=== PATIENT | male | born 1970 | race Caucasian/White ===

== ENCOUNTER → 2017-04-25 | Outpatient (CLI) | payer OTHER ==
--- NOTE | 2017-04-25 08:45 | US ---
EXAMINATION TYPE: US abdomen limited DATE OF EXAM: 04/25/2017 COMPARISON: None CLINICAL HISTORY: 46-year-old male R10.13 Epigastric Pain. Epigastric pain, NPO Technique: Multiple sonographic images of the right upper quadrant. FINDINGS: Liver Length: 14.5 cm Gallbladder Wall: 0.2 cm CBD: 0.3 cm CHD: 0.2 cm Right Kidney: 11.1 x 4.6 x 4.2 cm Pancreas: Tail obscured by overlying bowel gas Liver: Normal homogeneous echotexture without focal lesion. Gallbladder: No abnormal gallbladder distention, wall thickening, pericholecystic fluid, or shadowin g calculi. Evidence for sonographic Carnes's sign: neg CBD: wnl CHD: wnl Right Kidney: No hydronephrosis. IMPRESSION: Limited visualization of the pancreatic tail. Otherwise, unremarkable sonographic examination of the right upper quadrant.
== END | disposition home or self-care (01) ==
LOC: RADUSWWP 07:41
PROVIDERS: ATTEND Family Medicine
DX: R10.13 Epigastric pain (principal)
CPT/HCPCS: 76705

== ENCOUNTER → 2017-04-25 | Outpatient (CLI) | payer OTHER ==
[2017-04-25 08:34] LABS: Basophils % (A) 0 %; Eosinophils # (A) 0.1 k/uL (0-0.7); Eosinophils % (A) 2 %; HCT 50.9 % (39.0-53.0); HGB 16.1 gm/dL (13.0-17.5); Lymphocytes # (A) 1.8 k/uL (1.0-4.8); Lymphocytes % (A) 41 %; MCH 28.8 pg (25.0-35.0); MCHC 31.7 g/dL (31.0-37.0); Monocytes # (A) 0.3 k/uL (0-1.0); Monocytes % (A) 7 %; Neutrophils # (A) 2.1 k/uL (1.3-7.7); Neutrophils % (A) 46 %; Platelet Count 244 k/uL (150-450); RBC 5.59 m/uL (4.30-5.90); RDW 12.7 % (11.5-15.5); WBC 4.5 k/uL (3.8-10.6)
[2017-04-25 08:45] LABS: ALT 41 U/L (21-72); AST 24 U/L (17-59); Albumin 4.5 g/dL (3.5-5.0); Alkaline Phosphatase 43 U/L (38-126); Anion Gap 13 mmol/L; Blood Urea Nitrogen 25 mg/dL (9-20); Calcium 9.9 mg/dL (8.4-10.2); Carbon Dioxide 28 mmol/L (22-30); Chloride 104 mmol/L (98-107); Cholesterol 185 mg/dL (<200); Glucose 97 mg/dL (74-99); HDL Cholesterol 53 mg/dL (40-60); LDL Cholesterol,Calculated 109 mg/dL (0-99); Potassium 4.6 mmol/L (3.5-5.1); Sodium 145 mmol/L (137-145); Total Bilirubin 0.7 mg/dL (0.2-1.3); Total Protein 7.2 g/dL (6.3-8.2); Triglycerides 117 mg/dL (<150)
[2017-04-25 08:59] LABS: T4, Free (Free Thyroxine) 0.93 ng/dL (0.78-2.19)
== END | disposition home or self-care (01) ==
LOC: LABWHC1 07:59
PROVIDERS: ATTEND Internal Medicine
DX: Z00.00 Encounter for general adult medical examination without abnormal findings (principal); E78.5 Hyperlipidemia, unspecified
CPT/HCPCS: 36415; 80053; 80061; 84439; 84443; 85025

== ENCOUNTER → 2017-08-29 | Outpatient (CLI) | payer OTHER ==
--- NOTE | 2017-08-29 15:10 | ECHOS ---
STRESS ECHOCARDIOGRAM INDICATIONS: Chest pain. MEDICATIONS: Antihistamine tablet. BASELINE HEART RATE: 97 BASELINE BLOOD PRESSURE: 129/63 MAXIMUM HEART RATE: 175 MAXIMUM BLOOD PRESSURE: 148/103 85% MPHR: 147 100% MPHR: 173 METS: 12.9 MAXIMUM STAGE REACHED: IV TOTAL EXERCISE TIME: 12:32 CLINICAL INFORMATION: Baseline rhythm is sinus mechanism, rate of 97, normal axis and intervals, normal electrocardiogram. Baseline blood pressure 129/63 mmHg. Patient exercised on Deshawn protocol for 12 minute 32 seconds, reaching a peak rate of 175 beats per minute which is equal to 101% maximum predicted heart rate. Peak blood pressure 148/103 mmHg. Test was terminated due to fatigue. There are no chest pains. Electrocardiographic monitoring revealed no evidence of diagnostic ischemic ST deviation. FINDINGS: Baseline echocardiogram revealed normal left ventricular function at peak exercise. There was normal wall motion augmentation with no hypokinesis or dyskinesis. CONCLUSION: 1. Good exercise tolerance with normal electrocardiographic response to exercise. 2. Normal stress echocardiogram with no evidence of stress induced ischemia. MMODL / IJN: [id number] /
== END | disposition home or self-care (01) ==
LOC: RADNMMAIN 09:05
PROVIDERS: ATTEND Family Medicine
DX: R07.89 Other chest pain (principal)
CPT/HCPCS: 93351

== ENCOUNTER 2017-10-29 09:16 | Emergency (ER) | payer OTHER ==
[2017-10-29 09:24] VITALS: BP 138/99; PULSE 102; RESP 20; TEMP 98.1
--- NOTE | 2017-10-29 10:24 | ED ---
General Adult HPI - General Chief complaint: Extremity Injury, Upper Stated complaint: Arm injury-[facility] Time Seen by Provider: 10/29/17 09:44 Source: patient, RN notes reviewed Mode of arrival: ambulatory Limitations: no limitations - History of Present Illness Initial comments: Patient is a 47-year-old male presenting to the emergency room today with a chief complaint of an injury to the right arm that occurred earlier this morning when he was at work. He states he was pulling on a fence post when he felt a pop in the right biceps area. Patient states she's had tenderness distal aspect of the right bicep and into the elbow area anteriorly. He states worse with supination and flexion at the elbow. Patient denies any other complaints or symptoms. - Related Data Home Medications Medication Instructions Recorded Confirmed Loratadine [Claritin] 10 mg PO DAILY 10/29/17 10/29/17 Previous Rx's Medication Instructions Recorded Ibuprofen [Motrin] 600 mg PO Q6HR PRN #40 day 10/29/17 Allergies Allergy/AdvReac Type Severity Reaction Status Date / Time No Known Allergies Allergy Verified 10/29/17 10:01 Review of Systems ROS Statement: Those systems with pertinent positive or pertinent negative responses have been documented in the HPI. ROS Other: All systems not noted in ROS Statement are negative. Past Medical History Past Medical History: No Reported History History of Any Multi-Drug Resistant Organisms: None Reported Past Surgical History: Appendectomy, Hernia Repair Past Psychological History: No Psychological Hx Reported Smoking Status: Never smoker Past Alcohol Use History: Occasional Past Drug Use History: None Reported General Exam - General Exam Comments Initial Comments: General: The patient is awake and alert, in no distress, and does not appear acutely ill. Neck: The neck is supple, there is no tenderness or JVD. Musculoskeletal: Patient does have abnormal appearance of the biceps with flexion compared bilaterally. Decreased strength. Tender over the distal aspect of the right biceps and into the right anterior elbow. Radial pulses 2+ . Strength 4/5. Sensation intact. Neurological: A&O x 3. CN II-XII intact, There are no obvious motor or sensory deficits. Coordination appears grossly intact. Speech is normal. Skin: Skin is warm and dry and no rashes or lesions are noted. Psychiatric: Normal mood and affect. Limitations: no limitations Course Vital Signs 10/29/17 09:22 Temperature 98.1 F Pulse Rate 102 H Respiratory 20 Rate Blood Pressure 138/99 O2 Sat by Pulse 98 Oximetry Medical Decision Making - Medical Decision Making The patient is alert and shows evidence for a biceps tendon rupture. Case discussed with orthopedic procurement professional logistics Dr. Carnes recommends arm sling and followed up in the office. Patient states comfortable without movement. Advised following up with orthopedics or returning for any other concerns. Disposition Clinical Impression: Biceps tendon rupture Disposition: HOME SELF-CARE Condition: Good Instructions: Tendon Rupture (ED) Additional Instructions: Please follow-up orthopedics over the next 2 days. Please use arm sling when up and moving around as discussed. Please return to emergency room for any other concerns. Prescriptions: Ibuprofen [Motrin] 600 mg PO Q6HR PRN #40 day PRN Reason: Pain Is patient prescribed a controlled substance at d/c from ED?: No Referrals: Bebo Garcia Jr, DO [Primary Care Provider] - 1-2 days Daryn Carnes MD [STAFF PHYSICIAN] - 1-2 days Time of Disposition: 10:29
== END 2017-10-29 10:46 | disposition home or self-care (01) ==
LOC: EC 09:16
DX: S46.211A Strain of muscle, fascia and tendon of other parts of biceps, right arm, initial encounter (principal); Z79.899 Other long term (current) drug therapy; X50.9XXA Other and unspecified overexertion or strenuous movements or postures, initial encounter; Y93.89 Activity, other specified; Y92.69 Other specified industrial and construction area as the place of occurrence of the external cause; Y99.0 Civilian activity done for income or pay
CPT/HCPCS: 99283

== ENCOUNTER 2018-09-30 14:20 | Emergency (ER) | payer OTHER ==
[2018-09-30 14:28] VITALS: BP 143/94; TEMP 97.8
--- NOTE | 2018-09-30 17:28 | ED ---
General Adult HPI - General Chief complaint: Neck Pain/Injury Stated complaint: Facial Numbness, Neck into shoulder pain Time Seen by Provider: 09/30/18 16:15 Source: patient Mode of arrival: ambulatory Limitations: no limitations - History of Present Illness Initial comments: Patient is a 48-year-old male presents emergency Department with neck pain. Patient reports the symptoms started initially 2 weeks ago with ear discomfort due to ALLERGIES. Patient reports he has since developed pain originating in the left occipital region that is exacerbated with head rotation and alleviated at rest. Patient reports occasionally he feels intermittent numbness and tingling radiating to the left shoulder along the trapezius. Patient also reports occasional tingling along the left side of his face. Patient denies any 1 sided facial or upper extremity weakness. Patient denies blurry vision, headache, nausea, vomiting, chest pain or shortness of breath. - Related Data Home Medications Medication Instructions Recorded Confirmed Loratadine [Claritin] 10 mg PO DAILY 10/29/17 10/29/17 Previous Rx's Medication Instructions Recorded Ibuprofen [Motrin] 600 mg PO Q6HR PRN #40 day 10/29/17 Allergies Allergy/AdvReac Type Severity Reaction Status Date / Time No Known Allergies Allergy Verified 09/30/18 14:28 Review of Systems ROS Statement: Those systems with pertinent positive or pertinent negative responses have been documented in the HPI. ROS Other: All systems not noted in ROS Statement are negative. Past Medical History Past Medical History: No Reported History History of Any Multi-Drug Resistant Organisms: None Reported Past Surgical History: Appendectomy, Hernia Repair Past Psychological History: No Psychological Hx Reported Smoking Status: Never smoker Past Alcohol Use History: Occasional Past Drug Use History: None Reported General Exam Limitations: no limitations General appearance: alert, in no apparent distress Head exam: Present: atraumatic, normocephalic, normal inspection. Absent: other (One-sided facial droopiness or muscle weakness.) Eye exam: Present: normal appearance, PERRL, EOMI Pupils: Present: normal accommodation ENT exam: Present: normal exam Neck exam: Present: normal inspection, tenderness (Tenderness originating in the left suboccipital region with palpation.), full ROM (Full range of motion but pain with head rotation.). Absent: meningismus, lymphadenopathy, thyromegaly Respiratory exam: Present: normal lung sounds bilaterally Cardiovascular Exam: Present: regular rate, normal rhythm, normal heart sounds Extremities exam: Present: normal inspection, full ROM Back exam: Present: normal inspection, full ROM Neurological exam: Present: alert, oriented X3. Absent: motor sensory deficit Psychiatric exam: Present: normal affect, normal mood Skin exam: Present: warm, intact, normal color Course Vital Signs 09/30/18 09/30/18 14:25 17:37 Temperature 97.8 F 97.8 F Pulse Rate 79 77 Respiratory 16 18 Rate Blood Pressure 143/94 143/94 O2 Sat by Pulse 100 98 Oximetry Medical Decision Making - Medical Decision Making Patient is a 48-year-old male presents emergency Department with neck pain. Based on history and physical examination I suspect the patient to have a radiculopathy causing the numbness and tingling symptoms. Patient advised to follow-up with a spine surgeon. Strict return parameters were thoroughly discussed with patient who is understanding and agreeable. also examined the patient and is in agreement with the treatment plan. Disposition Clinical Impression: Radiculopathy Disposition: HOME SELF-CARE Condition: Stable Instructions (If sedation given, give patient instructions): Cervical Strain (ED), Cervical Sprain (ED) Additional Instructions: Please follow-up with Dr. Vieira. Please return to emergency department if symptoms worsen. Is patient prescribed a controlled substance at d/c from ED?: No Referrals: Gabbie Fisher MD [Primary Care Provider] - 1-2 days Lotus Vieira DO [Doctor of Osteopathic Medicine] - 1-2 days Time of Disposition: 17:27
[2018-09-30 17:38] VITALS: PULSE 77; RESP 18
== END 2018-09-30 17:37 | disposition home or self-care (01) ==
LOC: EC 14:20
DX: M54.12 Radiculopathy, cervical region (principal); Z79.899 Other long term (current) drug therapy
CPT/HCPCS: 99283

== ENCOUNTER → 2019-02-12 | Outpatient (CLI) | payer OTHER | END | disposition home or self-care (01) | LOC: LABWHC1 09:53 | PROVIDERS: ATTEND Family Medicine | DX: J01.90 Acute sinusitis, unspecified (principal) | CPT/HCPCS: 36415; 85652; 86140 ==

== ENCOUNTER → 2019-03-08 | Outpatient (CLI) | payer OTHER ==
--- NOTE | 2019-03-09 22:37 | CT ---
EXAMINATION TYPE: CT brain wo/w con DATE OF EXAM: 03/08/2019 COMPARISON: None. HISTORY: [place], neck pain CT DLP: 1891 mGycm. Automated Exposure Control for Dose Reduction was Utilized. TECHNIQUE: CT scan of the head is performed without and with IV Contrast, patient injected with 100 mL of Isovue 300. FINDINGS: Noncontrast images show no acute intracranial hemorrhage or midline shift. The ventricles and sulci show mild generalized prominence of the bilateral frontal lobes. Vaughn-white matter differe ntiation is maintained. Postcontrast images show no suspicious enhancing intraparenchymal mass. There is dominant right vertebral artery incidentally noted. The globes are intact and the visualized sinu ses are clear. IMPRESSION: Mild bilateral frontal lobe atrophy. No acute findings are evident.
== END | disposition home or self-care (01) ==
LOC: RADCTMAIN 07:46
PROVIDERS: ATTEND Internal Medicine
DX: G31.9 Degenerative disease of nervous system, unspecified (principal)
CPT/HCPCS: 70470; Q9967

== ENCOUNTER → 2020-02-27 | Outpatient (CLI) | payer OTHER ==
--- NOTE | 2020-02-27 11:26 | CT ---
EXAMINATION TYPE: CT abdomen pelvis wo con DATE OF EXAM: 02/27/2020 COMPARISON: None INDICATION: Lt flank pain DLP: 675 mGycm, Automated exposure control for dose reduction was used. CONTRAST: 0 mL of Isovue 300. Study performed without Oral Contrast TECHNIQUE: Axial images were obtained from above the diaphragm to the pubic rami in the axial plane a t 5 mm thick sections. Reconstructed images are reviewed on the computer in the coronal plane. FINDINGS: Limited CT sections are obtained the lung bases. The lung bases are clear. CT ABDOMEN: Liver: Normal Spleen: Normal. Splenule is at the splenic hilum. Pancreas: Normal Adrenal glands: The adrenal glands are normal. Gallbladder: Normal Kidneys: No masses are evident. No hydronephrosis is present. No cysts are present. There are mult iple nonobstructing renal stones present bilaterally, the majority of which measuring approximately 0 .2 cm each. Largest calcification at the inferior pole right kidney measuring 0.4 cm. Aorta: Minimal Vascular calcification is within the aorta. Inferior vena cava: Normal. CT PELVIS: Loops of bowel within the abdomen and pelvis are normal. There are loops of bowel which are incom pletely distended or lack oral contrast limiting their evaluation. Appendix: Normal as visualized. Urinary bladder: Normal. Genitourinary structures: Prostate is prominent. Osseous structures: No suspicious lytic or sclerotic lesions. IMPRESSIONS: 1. Multiple bilateral nonobstructing renal stones. The largest measures 0.4 cm at the inferior pole right kidney.
== END | disposition home or self-care (01) ==
LOC: RADCTMAIN 10:30
PROVIDERS: ATTEND Family Medicine
DX: N20.0 Calculus of kidney (principal)
CPT/HCPCS: 74176

== ENCOUNTER → 2021-03-23 | Outpatient (CLI) | payer OTHER ==
[2021-03-23 10:38] LABS: Basophils # (A) 0.02 X 10*3/uL (0.00-0.10); Basophils % (A) 0.5 %; Eosinophils # (A) 0.06 X 10*3/uL (0.04-0.35); Eosinophils % (A) 1.5 %; HCT 50.7 % (39.6-50.0); HGB 16.3 g/dL (13.0-17.0); Lymphocytes % (A) 41.4 %; MCHC 32.1 g/dL (32.0-37.0); MCV 90.1 fL (80.0-97.0); Mean Platelet Volume 9.9 fL (9.5-12.2); Monocytes % (A) 7.3 %; Neutrophils # (A) 2.02 X 10*3/uL (1.80-7.70); Neutrophils % (A) 49.1 %; Platelet Count 253 X 10*3/uL (140-440); RBC 5.63 X 10*6/uL (4.40-5.60); RDW 12.8 % (11.5-14.5); WBC 4.11 X 10*3/uL (4.50-10.00)
[2021-03-23 16:12] LABS: ALT 27 U/L (10-49); AST 17 U/L (14-35); African American GFR (CKD) 100.1 (60.0-200.0); Albumin 4.7 g/dL (3.8-4.9); Albumin/Globulin Ratio 2.27 (1.60-3.17); Alkaline Phosphatase 46 U/L (41-126); BUN/Creat Ratio 23.76 Ratio (12.00-20.00); Calcium 9.7 mg/dL (8.7-10.3); Carbon Dioxide 24.2 mmol/L (20.0-27.5); Chloride 102 mmol/L (96-109); Chol/HDL Ratio 3.81 Ratio; Globulin 2.1 g/dL (1.6-3.3); Glucose 97 mg/dL (70-110); LDL Cholesterol,Calculated 115.1 mg/dL (0.0-131.0); Non-African American GFR(CKD) 86.3 (60.0-200.0); Potassium 4.4 mmol/L (3.5-5.5); Sodium 140 mmol/L (135-145); Total Protein 6.8 g/dL (6.2-8.2)
== END | disposition home or self-care (01) ==
LOC: LABWHC1 07:46
PROVIDERS: ATTEND Internal Medicine
DX: Z00.00 Encounter for general adult medical examination without abnormal findings (principal); E78.00 Pure hypercholesterolemia, unspecified; J30.2 Other seasonal allergic rhinitis; Z12.5 Encounter for screening for malignant neoplasm of prostate
CPT/HCPCS: 84439; 80061; 80053; 84443; 85025; 36415; G0103

== ENCOUNTER 2021-08-23 07:06 | Emergency (ER) | payer BC, OTHER ==
[2021-08-23 07:18] VITALS: TEMP 97.6
[2021-08-23] MEDS ORDERED: KETOROLAC 15 MG/ML 1 ML VIAL IVP STA ×2 (07:46→09:09)
[2021-08-23] MEDS ORDERED: ONDANSETRON 4 MG/2 ML VIAL IVP STA (07:47)
[2021-08-23] MEDS ORDERED: SODIUM CHLORIDE 0.9% 1,000 ML IV STA (07:47)
[2021-08-23 08:24] LABS: Albumin 4.8 g/dL (3.5-5.0); Calcium 9.6 mg/dL (8.4-10.2); Potassium 4.7 mmol/L (3.5-5.1); Total Bilirubin 0.6 mg/dL (0.2-1.3); Total Protein 7.6 g/dL (6.3-8.2)
--- NOTE | 2021-08-23 08:29 | CT ---
EXAMINATION TYPE: CT abdomen pelvis wo con DATE OF EXAM: 08/23/2021 HISTORY: Rt flank pain CT DLP: 501 mGycm. Automated Exposure Control for Dose Reduction was Utilized. TECHNIQUE: CT scan of the abdomen and pelvis is performed without oral or IV contrast. COMPARISON: Prior CT 07/14/2019 FINDINGS: Within the limitations of a non-contrast study, the following observations are made. LUNG BASES: There is 2 mm peripheral right lower lobe nodule axial image 1. LIVER/GB: No significant abnormality is appreciated. PANCREAS: No significant abnormality is seen. SPLEEN: Stable small inferior splenule axial image 37. ADRENALS: No significant abnormality is seen. KIDNEYS: Several tiny bilateral renal calculi redemonstrated. Approximately 6 left-sided renal calcul i all measuring 2 mm or smaller in size and 2-3 right-sided renal calculi measuring nearly up to 4 mm lower pole level coronal image 44. There is 5 mm obstructing calculus in the proximal right ureter c oronal image 40 causing mild to minimal right-sided hydronephrosis. No left-sided hydronephrosis. No intraluminal calculus in the bladder. BOWEL: Suboptimal evaluation without enteric contrast. No suspicious small or large bowel dilatation. GENITAL ORGANS: Prostate gland is thought upper limits of normal in size. LYMPH NODES: No greater than 1cm abdominal or pelvic lymph nodes are appreciated. OSSEOUS STRUCTURES: No significant abnormality is seen. OTHER: No significant additional abnormality is seen. IMPRESSION: Tiny bilateral renal calculi with nonobstructing 4-5 mm calculus proximal right ureter ca using mild to minimal right-sided hydronephrosis.
[2021-08-23 08:33] LABS: Basophils % (A) 1 %; Eosinophils % (A) 1 %; HCT 48.4 % (39.0-53.0); HGB 16.1 gm/dL (13.0-17.5); Lymphocytes # (A) 1.3 k/uL (1.0-4.8); Lymphocytes % (A) 24 %; MCH 30.6 pg (25.0-35.0); MCHC 33.2 g/dL (31.0-37.0); Mean Platelet Volume 7.4; Monocytes # (A) 0.3 k/uL (0-1.0); Monocytes % (A) 5 %; Neutrophils # (A) 3.5 k/uL (1.3-7.7); Neutrophils % (A) 68 %; Platelet Count 282 k/uL (150-450); RBC 5.26 m/uL (4.30-5.90); RDW 13.2 % (11.5-15.5); WBC 5.2 k/uL (3.8-10.6)
--- NOTE | 2021-08-23 08:49 | ED ---
Abdominal Pain HPI - General Chief Complaint: Abdominal Pain Stated Complaint: right side pain Time Seen by Provider: 08/23/21 07:28 Source: patient, RN notes reviewed, old records reviewed Mode of arrival: ambulatory Limitations: no limitations - History of Present Illness Initial Comments: Patient is a 51-year-old male with history of kidney stones, presenting to the emergency Department with complaints of a sudden onset right sided abdominal pain at about 5:30 this morning. He states the pain started on the right side of his abdomen and does radiate down towards the right lower quadrant into his groin. He states the pain is very intense at times. Currently rates it a 7/10. So some associated nausea, no vomiting. He has history of appendectomy, hernia repair, no other abdominal surgeries. States yesterday he felt his normal self. He has no fevers, no chest pain or shortness of breath. He has no further complaints today. - Related Data Home Medications Medication Instructions Recorded Confirmed Loratadine [Claritin] 10 mg PO DAILY 10/29/17 10/29/17 Previous Rx's Medication Instructions Recorded Ibuprofen [Motrin] 600 mg PO Q6HR PRN #40 day 10/29/17 HYDROcodone/APAP 5-325MG [[place] 1 tab PO Q6HR PRN 3 Days #12 tab 08/23/21 5-325] Ketorolac [Toradol] 10 mg PO Q8HR #10 tab 08/23/21 Ondansetron Odt [Zofran Odt] 4 mg PO Q8HR PRN #12 tab 08/23/21 Tamsulosin [Flomax] 0.4 mg PO DAILY #7 cap 08/23/21 Allergies Allergy/AdvReac Type Severity Reaction Status Date / Time No Known Allergies Allergy Verified 08/23/21 07:18 Review of Systems ROS Statement: Those systems with pertinent positive or pertinent negative responses have been documented in the HPI. ROS Other: All systems not noted in ROS Statement are negative. Past Medical History Past Medical History: No Reported History Additional Past Medical History / Comment(s): Kidney stones History of Any Multi-Drug Resistant Organisms: None Reported Past Surgical History: Appendectomy, Hernia Repair Past Psychological History: No Psychological Hx Reported Smoking Status: Never smoker Past Alcohol Use History: Occasional Past Drug Use History: None Reported General Exam - General Exam Comments Initial Comments: GENERAL: Patient is well-developed and well-nourished. Patient is nontoxic and in mild distress, secondary to pain.. HEAD: Atraumatic, normocephalic. EYES: Pupils equal round and reactive to light, extraocular movements intact, sclera anicteric, conjunctiva are normal. Eyelids were unremarkable. ENT: Nares patent, oropharynx clear without exudates. Moist mucous membranes. NECK: Normal range of motion, supple without lymphadenopathy or JVD. LUNGS: Unlabored respirations. Breath sounds clear to auscultation bilaterally and equal. No wheezes rales or rhonchi. HEART: Regular rate and rhythm without murmurs, rubs or gallops. ABDOMEN: Soft, tender to palpation of the right side of the abdomen, right lower quadrant, normoactive bowel sounds. No guarding, no rebound. No masses appreciated. : Deferred MUSCULOSKELETAL: Normal extremities with adequate strength and normal range of motion, no pitting or edema. No clubbing or cyanosis. NEUROLOGICAL: Patient is alert and oriented x 3. Normal speech, normal gait. PSYCH: Normal mood, normal affect. SKIN: Warm, Dry, normal turgor, no rashes or lesions noted. Limitations: no limitations Course Vital Signs 08/23/21 07:15 Temperature 97.6 F Pulse Rate 52 L Respiratory 20 Rate Blood Pressure 152/94 O2 Sat by Pulse 99 Oximetry Medical Decision Making - Medical Decision Making Patient is a 51-year-old male with history of kidney stones, presenting with right-sided abdominal pain started suddenly at 5:30 this morning. Mild distress on arrival. Vital signs are stable. Labs showing normal white count, stable kidney function. CT scan of the abdomen shows several bilateral renal colic I present, there is a 5 mm obstructing calculus in the proximal right ureter causing mild hydronephrosis. Urine shows large amount of blood, no bacteria concerns for infection. Patient given a dose of Toradol, pain is much more improved. Patient is stable for discharge at this time. Patient be sent home with Flomax, pain control as well as Zofran. I will give him urology follow-up. Patient is agreeable with this plan of care, return parameters were discussed, patient verbalizes understanding. Case discussed with Dr. Cote. - Lab Data Result diagrams: 08/23/21 08:01 08/23/21 08:01 Lab Results 08/23/21 08/23/21 08/23/21 Range/Units 08:01 08:01 09:26 WBC 5.2 (3.8-10.6) k/uL RBC 5.26 (4.30-5.90) m/uL Hgb 16.1 (13.0-17.5) gm/dL Hct 48.4 (39.0-53.0) % MCV 92.0 (80.0-100.0) fL MCH 30.6 (25.0-35.0) pg MCHC 33.2 (31.0-37.0) g/dL RDW 13.2 (11.5-15.5) % Plt Count 282 (150-450) k/uL MPV 7.4 Neutrophils % 68 % Lymphocytes % 24 % Monocytes % 5 % Eosinophils % 1 % Basophils % 1 % Neutrophils # 3.5 (1.3-7.7) k/uL Lymphocytes # 1.3 (1.0-4.8) k/uL Monocytes # 0.3 (0-1.0) k/uL Eosinophils # 0.0 (0-0.7) k/uL Basophils # 0.0 (0-0.2) k/uL Sodium 140 (137-145) mmol/L Potassium 4.7 (3.5-5.1) mmol/L Chloride 105 (98-107) mmol/L Carbon Dioxide 24 (22-30) mmol/L Anion Gap 11 mmol/L BUN 30 H (9-20) mg/dL Creatinine 1.17 (0.66-1.25) mg/dL Est GFR (CKD-EPI)AfAm 83 (>60 ml/min/1.73 sqM) Est GFR (CKD-EPI)NonAf 72 (>60 ml/min/1.73 sqM) Glucose 116 H (74-99) mg/dL Calcium 9.6 (8.4-10.2) mg/dL Total Bilirubin 0.6 (0.2-1.3) mg/dL AST 32 (17-59) U/L ALT 31 (4-49) U/L Alkaline Phosphatase 46 (38-126) U/L Total Protein 7.6 (6.3-8.2) g/dL Albumin 4.8 (3.5-5.0) g/dL Urine Color Yellow Urine Appearance Cloudy (Clear) Urine pH 5.5 (5.0-8.0) Ur Specific [place] 1.031 (1.001-1.035) Urine Protein Trace H (Negative) Urine Glucose (UA) Negative (Negative) Urine Ketones 1+ H (Negative) Urine Blood Large H (Negative) Urine Nitrite Negative (Negative) Urine Bilirubin Negative (Negative) Urine Urobilinogen <2.0 (<2.0) mg/dL Ur Leukocyte Esterase Negative (Negative) Urine RBC 93 H (0-5) /hpf Urine WBC 4 (0-5) /hpf Ur Squamous Epith Cells <1 (0-4) /hpf Amorphous Sediment Few H (None) /hpf Urine Mucus Many H (None) /hpf Disposition Clinical Impression: Right ureteral calculus Disposition: HOME SELF-CARE Condition: Stable Instructions (If sedation given, give patient instructions): Kidney Stones (ED) Additional Instructions: Please return to the Emergency Department if symptoms worsen or any other concerns. Take medications as prescribed, may alternate between the Toradol and [place] for pain relief. Drink plenty of fluids. Follow-up with urology. Prescriptions: Tamsulosin [Flomax] 0.4 mg PO DAILY #7 cap HYDROcodone/APAP 5-325MG [[place] 5-325] 1 tab PO Q6HR PRN 3 Days #12 tab PRN Reason: Pain Ketorolac [Toradol] 10 mg PO Q8HR #10 tab Ondansetron Odt [Zofran Odt] 4 mg PO Q8HR PRN #12 tab PRN Reason: Nausea Is patient prescribed a controlled substance at d/c from ED?: Yes When asked, does pt state using other controlled substances?: No If prescribed controlled substance>3 days was MAPS reviewed?: Prescribed <3 Days If opioid is for acute pain is fill amount 7 days or less?: Yes If Rx opioid, was Start Talking consent form obtained?: Yes Referrals: Bebo Garcia Jr, DO [Primary Care Provider] - 1-2 days Bennett Michel MD [STAFF PHYSICIAN] - 1-2 days Time of Disposition: 10:11
[2021-08-23 09:56] LABS: Amorphous Sediment,Urine Few /hpf; Appearance,Urine Cloudy (Clear); Bilirubin,Urine Negative (Negative); Blood,Urine Large (Negative); Color,Urine Yellow; Glucose,Urine (UA) Negative (Negative); Ketones,Urine 1+ (Negative); Leukocyte Esterase,Urine Negative (Negative); Mucus,Urine Many /hpf; Nitrite,Urine Negative (Negative); PH, Urine 5.5 (5.0-8.0); Protein,Urine Trace (Negative); RBC,Urine 93 /hpf (0-5); Specific Gravity,Urine 1.031 (1.001-1.035); Squamous Epithelial Cell,Urine <1 /hpf (0-4); Urobilinogen,Urine <2.0 mg/dL (<2.0); WBC,Urine 4 /hpf (0-5)
[2021-08-23 10:54] VITALS: BP 142/71; PULSE 64; RESP 18
== END 2021-08-23 10:45 | disposition home or self-care (01) ==
LOC: EC 07:06
DX: N20.1 Calculus of ureter (principal)
CPT/HCPCS: 36415; 80053; 85025; 81001; 74176; 99284; 96374; 96375; 96361; J2405; J1885

== ENCOUNTER 2021-08-26 19:45 | Emergency (ER) | payer BC ==
[2021-08-26] MEDS ORDERED: SODIUM CHLORIDE 0.9% 1,000 ML IV STA (20:04)
[2021-08-26] MEDS ORDERED: HYDROmorphone 0.5 MG/0.5 ML SYRINGE IVP STA (20:04)
[2021-08-26] MEDS ORDERED: KETOROLAC 15 MG/ML 1 ML VIAL IVP STA (20:04)
[2021-08-26] MEDS ORDERED: ACETAMINOPHEN TAB 500 MG TAB PO STA (20:04)
[2021-08-26] MEDS ORDERED: cefTRIAXone IN SWFI 1,000 MG/10 ML SYRINGE IVP STA (20:04)
--- NOTE | 2021-08-26 20:08 | ED ---
General Adult HPI - General Source: patient, RN notes reviewed, old records reviewed Mode of arrival: ambulatory Limitations: no limitations <Rock Carey - Last Filed: 08/26/21 20:50> <Fernie Alejandra - Last Filed: 08/27/21 02:34> - General Chief complaint: Abdominal Pain Stated complaint: Here 08/23/Fever Time Seen by Provider: 08/26/21 19:58 - History of Present Illness Initial comments: This a 51-year-old male who presents emergency Department stating that he was diagnosed with a kidney stone 3 days ago. Patient states he is scheduled for lithotripsy on Sunday. Patient states the pain is as better or little bit worse than it has been. Patient states he has been spiking a fever he had 101.2 fever at home but over the last hour or so spent 100.4. Patient states he is very tender to palpation on the right side but that is been ongoing since he had his kidney stone diagnosed 3 days ago. Patient states he has been taking Mcdonald as Flomax and Toradol at home. Patient denies any vomiting. Patient states he did have one episode of diarrhea. Patient denies any chest pain difficulty breathing shortness of breath. (Rock Carey) - Related Data Home Medications Medication Instructions Recorded Confirmed Loratadine [Claritin] 10 mg PO DAILY 10/29/17 08/26/21 Ketorolac [Toradol] 10 mg PO Q8H PRN 08/26/21 08/26/21 Ondansetron Odt [Zofran Odt] 4 mg PO Q8H PRN 08/26/21 08/26/21 Previous Rx's Medication Instructions Recorded HYDROcodone/APAP 5-325MG [Mcdonald 1 tab PO Q6HR PRN 3 Days #12 tab 08/23/21 5-325] Tamsulosin [Flomax] 0.4 mg PO DAILY #7 cap 08/23/21 Cephalexin [Keflex] 500 mg PO Q6HR #28 cap 08/27/21 Allergies Allergy/AdvReac Type Severity Reaction Status Date / Time No Known Allergies Allergy Verified 08/26/21 22:53 Review of Systems ROS Other: All systems not noted in ROS Statement are negative. <Rock Carey - Last Filed: 08/26/21 20:50> ROS Other: All systems not noted in ROS Statement are negative. <Fernie Alejandra - Last Filed: 08/27/21 02:34> ROS Statement: Those systems with pertinent positive or pertinent negative responses have been documented in the HPI. Past Medical History Past Medical History: No Reported History Additional Past Medical History / Comment(s): Kidney stones History of Any Multi-Drug Resistant Organisms: None Reported Past Surgical History: Appendectomy, Hernia Repair Past Psychological History: No Psychological Hx Reported Smoking Status: Never smoker Past Alcohol Use History: Occasional Past Drug Use History: None Reported <Rock Carey - Last Filed: 08/26/21 20:50> General Exam Limitations: no limitations <Rock Carey - Last Filed: 08/26/21 20:50> - General Exam Comments Initial Comments: GENERAL: Patient is well-developed and well-nourished. Patient is nontoxic and well- hydrated and is in moderate distress. ENT: Neck is soft and supple. No significant lymphadenopathy is noted. Oropharynx is clear. Moist mucous membranes. Neck has full range of motion without eliciting any pain. EYES: The sclera were anicteric and conjunctiva were pink and moist. Extraocular movements were intact and pupils were equal round and reactive to light. Eyelids were unremarkable. PULMONARY: Unlabored respirations. Good breath sounds bilaterally. No audible rales rhonchi or wheezing was noted. CARDIOVASCULAR: There is a regular rate and rhythm without any murmurs gallops or rubs. ABDOMEN: Patient has right sided abdominal pain this CVA tenderness on the right SKIN: Skin is clear with no lesions or rashes and otherwise unremarkable. NEUROLOGIC: Patient is alert and oriented x3. Cranial nerves II through XII are grossly intact. Motor and sensory are also intact. Normal speech, volume and content. Symmetrical smile. MUSCULOSKELETAL: Normal extremities with adequate strength and full range of motion. LYMPHATICS: No significant lymphadenopathy is noted PSYCHIATRIC: Normal psychiatric evaluation. (Rock Carey) Course Vital Signs 08/26/21 08/26/21 08/26/21 19:55 22:00 23:00 Temperature 98.0 F 98.2 F 98.1 F Pulse Rate 91 88 79 Respiratory 18 20 20 Rate Blood Pressure 134/92 130/89 140/84 O2 Sat by Pulse 98 97 98 Oximetry Medical Decision Making - Lab Data Result diagrams: 08/26/21 20:25 <Rock Carey - Last Filed: 08/26/21 20:50> - Lab Data Result diagrams: 08/26/21 20:25 08/26/21 20:25 <Fernie Alejandra - Last Filed: 08/27/21 02:34> - Medical Decision Making Dr. Bernie ontiveros taking over the care of this patient at 9 PM (Rock Carey) - Lab Data Lab Results 08/26/21 08/26/21 08/26/21 Range/Units 20:25 20:25 20:25 WBC 7.5 (3.8-10.6) k/uL RBC 4.91 (4.30-5.90) m/uL Hgb 14.5 (13.0-17.5) gm/dL Hct 45.1 (39.0-53.0) % MCV 91.9 (80.0-100.0) fL MCH 29.6 (25.0-35.0) pg MCHC 32.3 (31.0-37.0) g/dL RDW 13.0 (11.5-15.5) % Plt Count 226 (150-450) k/uL MPV 7.5 Neutrophils % 75 % Lymphocytes % 15 % Monocytes % 6 % Eosinophils % 2 % Basophils % 0 % Neutrophils # 5.6 (1.3-7.7) k/uL Lymphocytes # 1.1 (1.0-4.8) k/uL Monocytes # 0.4 (0-1.0) k/uL Eosinophils # 0.2 (0-0.7) k/uL Basophils # 0.0 (0-0.2) k/uL Sodium 135 L (137-145) mmol/L Potassium 3.9 (3.5-5.1) mmol/L Chloride 104 (98-107) mmol/L Carbon Dioxide 22 (22-30) mmol/L Anion Gap 9 mmol/L BUN 26 H (9-20) mg/dL Creatinine 1.77 H (0.66-1.25) mg/dL Est GFR (CKD-EPI)AfAm 50 (>60 ml/min/1.73 sqM) Est GFR (CKD-EPI)NonAf 44 (>60 ml/min/1.73 sqM) Glucose 119 H (74-99) mg/dL Plasma Lactic Acid Calderon (0.7-2.0) mmol/L Calcium 8.8 (8.4-10.2) mg/dL Total Bilirubin 0.6 (0.2-1.3) mg/dL AST 25 (17-59) U/L ALT 32 (4-49) U/L Alkaline Phosphatase 51 (38-126) U/L Total Protein 6.4 (6.3-8.2) g/dL Albumin 3.9 (3.5-5.0) g/dL Amylase 61 (30-110) U/L Lipase 39 (23-300) U/L Urine Color Yellow Urine Appearance Clear (Clear) Urine pH 5.5 (5.0-8.0) Ur Specific Fosters 1.012 (1.001-1.035) Urine Protein Negative (Negative) Urine Glucose (UA) Negative (Negative) Urine Ketones Negative (Negative) Urine Blood Negative (Negative) Urine Nitrite Negative (Negative) Urine Bilirubin Negative (Negative) Urine Urobilinogen <2.0 (<2.0) mg/dL Ur Leukocyte Esterase Negative (Negative) 08/26/21 Range/Units 20:25 WBC (3.8-10.6) k/uL RBC (4.30-5.90) m/uL Hgb (13.0-17.5) gm/dL Hct (39.0-53.0) % MCV (80.0-100.0) fL MCH (25.0-35.0) pg MCHC (31.0-37.0) g/dL RDW (11.5-15.5) % Plt Count (150-450) k/uL MPV Neutrophils % % Lymphocytes % % Monocytes % % Eosinophils % % Basophils % % Neutrophils # (1.3-7.7) k/uL Lymphocytes # (1.0-4.8) k/uL Monocytes # (0-1.0) k/uL Eosinophils # (0-0.7) k/uL Basophils # (0-0.2) k/uL Sodium (137-145) mmol/L Potassium (3.5-5.1) mmol/L Chloride (98-107) mmol/L Carbon Dioxide (22-30) mmol/L Anion Gap mmol/L BUN (9-20) mg/dL Creatinine (0.66-1.25) mg/dL Est GFR (CKD-EPI)AfAm (>60 ml/min/1.73 sqM) Est GFR (CKD-EPI)NonAf (>60 ml/min/1.73 sqM) Glucose (74-99) mg/dL Plasma Lactic Acid Calderon 0.9 (0.7-2.0) mmol/L Calcium (8.4-10.2) mg/dL Total Bilirubin (0.2-1.3) mg/dL AST (17-59) U/L ALT (4-49) U/L Alkaline Phosphatase (38-126) U/L Total Protein (6.3-8.2) g/dL Albumin (3.5-5.0) g/dL Amylase (30-110) U/L Lipase (23-300) U/L Urine Color Urine Appearance (Clear) Urine pH (5.0-8.0) Ur Specific Fosters (1.001-1.035) Urine Protein (Negative) Urine Glucose (UA) (Negative) Urine Ketones (Negative) Urine Blood (Negative) Urine Nitrite (Negative) Urine Bilirubin (Negative) Urine Urobilinogen (<2.0) mg/dL Ur Leukocyte Esterase (Negative) Disposition <Rock Carey - Last Filed: 08/26/21 20:50> Is patient prescribed a controlled substance at d/c from ED?: No <Fernie Alejandra - Last Filed: 08/27/21 02:34> Clinical Impression: Flank pain Disposition: HOME SELF-CARE Condition: Good Prescriptions: Cephalexin [Keflex] 500 mg PO Q6HR #28 cap Referrals: Bebo Garcia Jr, DO [Primary Care Provider] - 1-2 days Bennett Michel MD [STAFF PHYSICIAN] - 1-2 days
[2021-08-26 20:48] LABS: Basophils % (A) 0 %; Eosinophils # (A) 0.2 k/uL (0-0.7); Eosinophils % (A) 2 %; HCT 45.1 % (39.0-53.0); HGB 14.5 gm/dL (13.0-17.5); Lymphocytes # (A) 1.1 k/uL (1.0-4.8); Lymphocytes % (A) 15 %; MCH 29.6 pg (25.0-35.0); MCHC 32.3 g/dL (31.0-37.0); MCV 91.9 fL (80.0-100.0); Mean Platelet Volume 7.5; Monocytes # (A) 0.4 k/uL (0-1.0); Monocytes % (A) 6 %; Neutrophils # (A) 5.6 k/uL (1.3-7.7); Neutrophils % (A) 75 %; Platelet Count 226 k/uL (150-450); RBC 4.91 m/uL (4.30-5.90); WBC 7.5 k/uL (3.8-10.6)
[2021-08-26 21:20] LABS: Appearance,Urine Clear (Clear); Bilirubin,Urine Negative (Negative); Blood,Urine Negative (Negative); Color,Urine Yellow; Glucose,Urine (UA) Negative (Negative); Ketones,Urine Negative (Negative); Leukocyte Esterase,Urine Negative (Negative); Nitrite,Urine Negative (Negative); PH, Urine 5.5 (5.0-8.0); Protein,Urine Negative (Negative); Specific Gravity,Urine 1.012 (1.001-1.035); Urobilinogen,Urine <2.0 mg/dL (<2.0)
[2021-08-26 22:00] LABS: Albumin 3.9 g/dL (3.5-5.0); Calcium 8.8 mg/dL (8.4-10.2); Potassium 3.9 mmol/L (3.5-5.1); Total Bilirubin 0.6 mg/dL (0.2-1.3); Total Protein 6.4 g/dL (6.3-8.2)
[2021-08-27 02:35] VITALS: BP 141/86; PULSE 75; RESP 22; TEMP 97.3
== END 2021-08-27 02:39 | disposition home or self-care (01) ==
LOC: EC 19:45
DX: R10.9 Unspecified abdominal pain (principal)
CPT/HCPCS: 36415; 80053; 82150; 83605; 83690; 85025; 81003; 87040; 99284; 96374; 96375; 96361; J0696; J1885; J1170

== ENCOUNTER 2021-10-25 08:50 | Day surgery (SDC) | payer BC, OTHER ==
[2021-10-20 14:33] VITALS: BMI 25.1
[~2021-10-25 08:50] MED LIST: LACTATED RINGERS 1,000 ML IV SCH; LIDOCAINE 1% (10MG/ML) FOR IV START INTRADERMA PRN
[2021-10-25 09:28] VITALS: TEMP 98.3
[2021-10-25] MEDS ORDERED: PROPOFOL 10 MG/ML 20 ML VIAL IV ONE (10:03)
--- NOTE | 2021-10-25 10:09 | P.GSHP ---
History of Present Illness H&P Date: 10/25/21 Chief Complaint: Colon cancer screening 51-year-old male here today for colonoscopy. Last colonoscopy 9 to 10 years ago. No bowel complaints. No family history of colon cancer. 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, History of Any Multi-Drug Resistant Organisms: None Reported Past Surgical History: Appendectomy, Hernia Repair Additional Past Surgical History / Comment(s): rt bicep repair Past Anesthesia/Blood Transfusion Reactions: No Reported Reaction Smoking Status: Never smoker - Past Family History Mother Family Medical History: Cancer Additional Family Medical History / Comment(s): breast Medications and Allergies Home Medications Medication Instructions Recorded Confirmed Type Loratadine [Claritin] 10 mg PO DAILY 10/29/17 10/20/21 History Allergies Allergy/AdvReac Type Severity Reaction Status Date / Time No Known Allergies Allergy Verified 10/25/21 09:19 Surgical - Exam Vital Signs Temp Pulse Resp BP Pulse Ox 98.3 F 73 16 146/86 99 10/25/21 09:19 10/25/21 09:19 10/25/21 09:19 10/25/21 09:19 10/25/21 09:19 Physical exam: General: Well-developed, well-nourished HEENT: Normocephalic, sclerae nonicteric Abdomen: Nontender, nondistended Extremities: No edema Neuro: Alert and oriented Assessment and Plan (1) Colon cancer screening Narrative/Plan: Will proceed with colonoscopy at this time Current Visit: Yes Status: Acute Code(s): Z12.11 - ENCOUNTER FOR SCREENING FOR MALIGNANT NEOPLASM OF COLON SNOMED Code(s): 767939764
--- NOTE | 2021-10-25 10:33 | P.PCN ---
Date of Procedure: 10/25/21 Procedure(s) Performed: PREOPERATIVE DIAGNOSIS: Colon cancer screening POSTOPERATIVE DIAGNOSIS: Normal exam PROCEDURE: Colonoscopy ANESTHESIA: MAC SURGEON: Sterling Chu M.D. SPECIMENS: None ENDOSCOPIC PROCEDURE: The patient was placed on the endoscopy table in the left decubitus position. The Olympus colonoscope was inserted into the anus and passed under direct visualization to the base of the cecum. The appendiceal orifice was visualized. From that point the scope was slowly withdrawn inspecti ng all surfaces carefully. There were no neoplastic inflammatory or polypoid lesions throughout the cecum, ascending, transverse, descending, sigmoid and rectum. There was no diverticulosis noted. Digital rectal examination was normal. The patient was taken to the recovery room in stable condition per anesthesia guidelines. RECOMMENDATIONS: Resume diet. Follow-up colonoscopy in 10 years.
[2021-10-25 10:47] VITALS: BP 130/84; PULSE 71; RESP 16
== END 2021-10-25 11:04 | disposition home or self-care (01) ==
LOC: ORWHC2ENDO 08:50
PROVIDERS: ATTEND Surgery
DX: Z12.11 Encounter for screening for malignant neoplasm of colon (principal); Z90.49 Acquired absence of other specified parts of digestive tract; Z79.899 Other long term (current) drug therapy; Z80.3 Family history of malignant neoplasm of breast; Z87.442 Personal history of urinary calculi
CPT/HCPCS: 45378; J2704

== ENCOUNTER → 2022-11-14 | Outpatient (CLI) | payer BC ==
[2022-11-14 15:45] LABS: Basophils # (A) 0.04 X 10*3/uL (0.00-0.10); Basophils % (A) 0.8 %; Eosinophils # (A) 0.07 X 10*3/uL (0.04-0.35); Eosinophils % (A) 1.4 %; HCT 48.9 % (39.6-50.0); HGB 16.2 d/dL (13.0-17.0); Lymphocytes % (A) 36.3 %; MCH 30.2 pg (27.0-32.0); MCHC 33.1 d/dL (32.0-37.0); MCV 91.2 FL (80.0-97.0); Mean Platelet Volume 10.1 FL (9.5-12.2); Monocytes # (A) 0.39 X 10*3/uL (0.20-1.00); Monocytes % (A) 7.9 %; NRBC Per 100 WBC 0 X 10*3/uL (0.00-0.01); Neutrophils # (A) 2.65 X 10*3/uL (1.80-7.70); Neutrophils % (A) 53.4 %; Platelet Count 234 X 10*3/uL (140-440); RBC 5.36 X 10*6/uL (4.40-5.60); RDW 13.4 % (11.5-14.5); WBC 4.96 X 10*3/uL (4.50-10.00)
[2022-11-14 16:13] LABS: ALT 31 U/L (10-49); AST 20 U/L (14-35); Albumin 5.1 d/dL (3.8-4.9); Albumin/Globulin Ratio 2.43 Ratio (1.60-3.17); Alkaline Phosphatase 44 U/L (41-126); BUN/Creat Ratio 17.73 Ratio (12.00-20.00); Blood Urea Nitrogen 19.5 mg/dL (9.0-27.0); Calcium 9.9 mg/dL (8.7-10.3); Carbon Dioxide 27.3 mmol/L (21.6-31.8); Chloride 106 mmol/L (96-109); Chol/HDL Ratio 3.54 Ratio; Globulin 2.1 d/dL (1.6-3.3); Glucose 97 mg/dL (70-110); LDL Cholesterol,Calculated 102.9 mg/dL (0.0-131.0); Potassium 4.9 mmol/L (3.5-5.5); Sodium 143 mmol/L (135-145); T4, Free (Free Thyroxine) 1.44 ng/dL (0.80-1.80); Total Bilirubin 0.4 mg/dL (0.3-1.2); Total Protein 7.2 d/dL (6.2-8.2)
[2022-11-14 17:10] LABS: Erythrocyte Sedimentation Rate 5 mm/Hr (0-20)
== END | disposition home or self-care (01) ==
LOC: LABWHC1 08:02
PROVIDERS: ATTEND Internal Medicine
DX: E55.9 Vitamin D deficiency, unspecified (principal); E53.8 Deficiency of other specified B group vitamins; R53.1 Weakness; R53.83 Other fatigue; M79.10 Myalgia, unspecified site
CPT/HCPCS: 36415; 80053; 80061; 82306; 82607; 84153; 84439; 84443; 85025; 85652

== ENCOUNTER → 2023-11-23 | Outpatient (CLI) | payer BC ==
--- NOTE | 2023-11-23 13:41 | CT ---
EXAMINATION TYPE: CT abdomen pelvis wo con DATE OF EXAM: 11/23/2023 HISTORY: LEFT FLANK PAIN CT DLP: 376.9 mGycm. Automated Exposure Control for Dose Reduction was Utilized. TECHNIQUE: CT scan of the abdomen and pelvis is performed without oral or IV contrast. COMPARISON: 08/23/2021 FINDINGS: Within the limitations of a non-contrast study, the following observations are made. LUNG BASES: No significant abnormality is appreciated. LIVER/GB: No significant abnormality is appreciated. PANCREAS: No significant abnormality is seen. SPLEEN: No significant abnormality is seen. Accessory splenule. ADRENALS: No significant abnormality is seen. KIDNEYS: Multiple punctate the lower pole left renal calculi with no hydronephrosis. Single punctate 1 mm lower pole right renal calculus. No hydronephrosis.. BOWEL: Bowel gas pattern nonspecific with no diagnostic evidence of obstruction. Mild diverticulosis. . GENITAL ORGANS: No gross abnormality seen. LYMPH NODES: No greater than 1cm abdominal or pelvic lymph nodes are appreciated. OSSEOUS STRUCTURES: No significant abnormality is seen. OTHER: No significant additional abnormality is seen. IMPRESSION: 1. Bilateral nonobstructive nephrolithiasis.
== END | disposition home or self-care (01) ==
LOC: RADCTMAIN 12:57
PROVIDERS: ATTEND Family Medicine
DX: N20.0 Calculus of kidney (principal)
CPT/HCPCS: 74176